=== PATIENT | female | born 1970 | race Two or more races ===

== ENCOUNTER 2024-11-29 09:56 | Emergency (ER) | payer MEDICAID, SELFPAY ==
[2024-11-29 10:21] VITALS: BP 140/82; PULSE 68; RESP 19; TEMP 36.7; O2SAT 96; BMI 26.4
--- NOTE | 2024-11-29 10:36 | PD.EDCHEST ---
ED Chest Pain RME/HPI General Chief Complaint: Chest Pain Stated Complaint: LEFT CHEST/BREAST PAIN X BRANDT, COUGH Time Seen by Provider: 11/29/24 10:09 Source: patient Arrival date/time: 11/29/24 09:56 This is a 54-year-old female presents to the emergency department with complaints of left mid rib pain. She does report that on Monday she was attempting to push a wooden table and heard a pop in her left rib. Was seen by her PCP given 800 of ibuprofen with no relief of symptoms. Patient reports pain with deep inspiration and movement. Here for second evaluation. Mode of arrival: ambulatory Limitations: no limitations Related Data Home Medications ?Medication ?Instructions ?Recorded ?Confirmed PNV CMB#95/FERROUS FUMARATE/FA 1 tab PO QDAY #0 tabs 11/18/13 ( MULTIVITAMINS TABLET) Previous Rx's ?Medication ?Instructions ?Recorded hydrocodone 5 mg-acetaminophen 325 1 tab PO Q6H PRN pain #20 tabs 02/28/21 mg tablet albuterol sulfate 2.5 mg/3 mL 2.5 mg (3 mL) inhalation QID PRN 09/16/23 (0.083 %) solution for nebulization shortness of breath or wheezing #90 mL albuterol sulfate 90 mcg/actuation 2 puff inhalation Q6H PRN 09/16/23 aerosol inhaler shortness of breath or wheezing #8.5 grams ibuprofen 800 mg tablet 800 mg PO TID PRN pain #30 tabs 09/16/23 Allergies Allergy/AdvReac Type Severity Reaction Status Date / Time No Known Allergies Allergy Verified 11/29/24 10:02 Review of Systems Review of Systems Systems Reviewed: All systems reviewed, normal except as documented Narrative Review of Systems: Gen: No fever, no chills, no weight loss EYES: No discharge, no visual changes, no pain HEENT: No ear pain, no congestion, no sore throat PULM: No shortness of breath, no cough, no congestion CV: + Left rib/chest pain, no dyspnea on exertion, no palpitations GI: No nausea, no vomiting, no diarrhea, no pain, no constipation : No frequency, no urgency,? no dysuria Musc/skel: No joint pain, no back pain Skin: No rash? Psyc: No hallucinations, no depression Heme/Lymph: No easy bleeding or bruising tendencies Neuro: No weakness, no headache ED Exam General Limitations: Present no limitations General appearance: Present alert and in no apparent distress Head Head exam: Present atraumatic Eye Eye exam: Present normal appearance, PERRL and EOMI ENT ENT exam: Present normal exam, normal oropharynx and mucous membranes moist Neck Neck exam: Present normal inspection, full ROM and trachea midline Chest Chest inspection: Present normal inspection, symmetric chest wall rise and tenderness (Left anterior mid tender to palpation); Absent rash Expanded Chest Exam Breast: left: tenderness Respiratory Respiratory exam: Present normal lung sounds bilaterally; Absent respiratory distress or wheezes Cardiovascular Cardiovascular exam: Present regular rate, normal rhythm and normal heart sounds Abdominal Exam Abdominal exam: Present soft and normal bowel sounds Extremities Exam Extremities exam: Present normal inspection and full ROM Back Exam Back exam: Present normal inspection and full ROM Neurological Exam Neurological exam: Present alert, oriented X3 and CN II-XII intact Psychiatric Psychiatric exam: Present normal affect and normal mood Skin Skin exam: Present warm, dry, intact and normal color Course Quality Measures none Orders Category Date Time Status XR ribs LT min 3V w CXR1V Stat Exams 11/29/24 10:35 Completed CYCLObenzaPRINE [Flexeril] Med 11/29/24 10:35 Discontinued 5 mg PO X1 ONE Ketorolac Inj [Toradol Inj] Med 11/29/24 10:35 Discontinued 30 mg IM X1 ONE Vital Signs Vital signs: Vital Signs Temperature 98.0 F 11/29/24 10:21 Pulse Rate 68 11/29/24 10:21 Respiratory Rate 19 11/29/24 10:21 Blood Pressure 140/82 H 11/29/24 10:21 Pulse Oximetry (%) 96 11/29/24 10:21 Oxygen Delivery Method Room Air 11/29/24 10:21 Chest Pain MDM Narrative MDM Narrative:: This is a 54-year-old female who presents with left-sided rib pain status attempting to pull an object. X-rays negative for any rib fracture most likely costochondritis or rib strain. NSAIDs given Patient data External records reviewed:: [facility] previous records Clinical information provided by:: patient Social determinants that could affect healthcare access:: none Patient has the following chronic illnesses:: COPD, How is presenting disease/condition affected by chronic disease/condition?: uneffected by Evaluation data The following diagnostics were reviewed and interpreted by me:: radiology exam(s) Lab and/or radiology exams considered but not ordered:: No Interpretation Summary: Examination: Ribs, left, with PA chest, 5 views Technique: Chest PA, RIBS AP, RPO, LPO, AP coned lower ribs 5 views Exam date and time: November 21, 2024 1043 hours INDICATIONS: Injury to the chest yesterday left rib pain Findings: Multiple opaque foreign bodies overlie the right axilla Normal heart size No pneumothorax Moderate osteopenia No acute rib fractures IMPRESSION: No pneumothorax pulmonary contusion or hemothorax No acute rib fractures Medications / Prescriptions Medications or Prescriptions considered but not ordered:: No Medication administrations:: Medication Administration History Discontinued Medications Cyclobenzaprine HCl (Cyclobenzaprine 5 Mg Tablet) 5 mg PO X1 ONE Stop: 11/29/24 10:36 Last Admin: 11/29/24 11:04 Dose: 5 mg Documented By: OA Ketorolac Tromethamine (Ketorolac Inj 60 Mg/2 Ml Vial) 30 mg IM X1 ONE Stop: 11/29/24 10:36 Last Admin: 11/29/24 11:04 Dose: 30 mg Documented By: OA All medications administered and effective Consultations Consultation(s) initiated? (list below): No Diagnosis Chest Pain Differential Diagnosis: fracture of rib, pneumothorax, atypical chest pain, costochondritis and other (Costochondritis, muscle wall pain) Most likely diagnosis given after review of the tests above:: Costochondritis Admission Indicated Admission indicated?: not indicated Admission Request Was there a request for admission?: No Disposition Plan Disposition Plan: Discharge Discharge Attestation Discharge Attestation: The patient and all family members were given an opportunity to ask questions and understood the discharge instructions. Discharge instructions specifically effects, indications for sooner follow up or return to the emergency department, and the expected course of current diagnosis. Patient condition: Stable Discharge Plan Plan Patient Disposition: HOME (Self Care) Patient condition on transfer: Stable Prescriptions/Referrals Prescriptions/Med Rec: No Action PNV CMB#95/FERROUS FUMARATE/FA ( MULTIVITAMINS TABLET) 1 EACH tablet 1 tab PO QDAY Qty: 0 hydrocodone-acetaminophen 5-325 mg tablet 1 tab PO Q6H MDD 4 g APAP PRN (Reason: pain) Qty: 20 0RF albuterol sulfate 90 mcg/actuation HFA aerosol inhaler 2 puff inhalation Q6H PRN (Reason: shortness of breath or wheezing) Qty: 8.5 0RF albuterol sulfate 2.5 mg /3 mL (0.083 %) solution for nebulization 2.5 mg inhalation QID PRN (Reason: shortness of breath or wheezing) Qty: 90 0RF ibuprofen 800 mg tablet 800 mg PO TID PRN (Reason: pain) Qty: 30 0RF Referrals: Vince Rodriguez MD [Primary Care Provider] - In 1 week Problem List Clinical Impression: Costalchondritis Patient/Caregiver Discharge Instructions Discharge Activity: activity as tolerated Education Materials: ED Chest Wall Pain, Costochondritis Additional Instructions: Your x-ray does not demonstrate any fractures to your bones. This is most likely a pulled muscle of your chest. Follow-up with your primary doctor or clinic 48 hours for follow-up care. Return to the emergency department this any worsening symptoms exertion. Print Language: Palestinian Stand Alone Forms: Trudi Award Info., Patient Portal Info Letter ELIAN/CLAUDINE Supervising Physician ELIAN/CLAUDINE Supervising Physician: Dr. Hughes
[2024-11-29] MEDS: KETOROLAC INJ 60 MG/2 ML VIAL 30 MG IM (11:04)
[2024-11-29] MEDS: CYCLObenzaPRINE 5 MG TABLET PO (11:04)
== END 2024-11-29 13:10 | disposition home or self-care (01) ==
PROVIDERS: Emergency Provider Emergency Medicine; PCP Family Medicine
DX: M94.0 Chondrocostal junction syndrome [Tietze] (principal)
CPT/HCPCS: 71101; 96372; 99283; J1885; A9270